=== PATIENT | female | born 1995 | race Caucasian/White ===

== ENCOUNTER 2017-02-02 19:36 | Inpatient (IN) | payer OTHER ==
[2017-02-02 20:43] LABS: Hematocrit 46 % (35-47); Hemoglobin 14.9 g/dl (12.0-16.0); Mean Corpuscular HGB Conc 33 g/dl (31-36); Mean Corpuscular Hemoglobin 28 pg (27-31); Mean Corpuscular Volume 84 fL (80-97); Mean Platelet Volume 10 um3 (7.4-10.4); Red Blood Count 5.42 10^6/ul (4.0-5.4); Red Cell Distribution Width 13 % (10.5-15); White Blood Count 8.4 10^3/ul (3.5-10.8)
[2017-02-02 20:55] LABS: Urine Bilirubin Negative (Negative); Urine Glucose Negative (Negative); Urine Nitrite Negative (Negative)
--- NOTE | 2017-02-02 20:58 | ED ---
Psychiatric Complaint - HPI Summary HPI Summary: 21F presents with increase depression due to school. had panic attack today and went to health center and sent here because admits to suicidal ideation for past week. Has no plan. denies any homicidal ideation. States that exams have caused increased anxiety and has made depression worst. denies any ETOH or drug use. Uses xanax for anxiety. not on any depression medication.has family history of depression. has been previously hospitalized for psych. - History Of Current Complaint Chief Complaint: EDMentalHealth Time Seen by Provider: 02/02/17 20:01 Hx Last Menstrual Period: 12/04/2015 - Allergies/Home Medications Allergies/Adverse Reactions: Allergies Allergy/AdvReac Type Severity Reaction Status Date / Time No Known Allergies Allergy Verified 02/02/17 19:42 Home Medications: Home Medications ALPRAZolam TAB* [Xanax TAB*] 0.5 mg PO TID PRN 02/02/17 [History Confirmed 02/02] Albuterol HFA INHALER* [Ventolin HFA Inhaler*] 1 puff INH Q4H PRN 02/02/17 [ History Confirmed 02/02/17] Levonorgestrel-Ethinyl Estradi [Jolessa 0.15-0.03 mg] 1 tab PO DAILY WITH MEAL 02/02/17 [History Confirmed 02/02/17] PMH/Surg Hx/FS Hx/Imm Hx Cardiovascular History: Denies: Hx Hypertension Respiratory History: Denies: Hx Asthma Psychiatric History: Reports: Hx Anxiety, Hx Depression Infectious Disease History: No Infectious Disease History: Denies: History Other Infectious Disease, Traveled Outside the [place] in Last 30 Days - Family History Known Family History: Positive: None - reviewed & noncontributory, Other - depression - Social History Alcohol Use: Occasionally Hx Substance Use: Yes Substance Use Type: Reports: Marijuana Substance Use Comment - Amount & Last Used: 2-3x's a year Hx Tobacco Use: No Smoking Status (MU): Never Smoked Tobacco Have You Smoked in the Last Year: No Review of Systems Negative: Fever Negative: Chest Pain Negative: Shortness Of Breath Positive: Anxious, Depressed All Other Systems Reviewed And Are Negative: Yes Physical Exam Triage Information Reviewed: Yes Vital Signs On Initial Exam: Initial Vitals Temp Pulse Resp BP Pulse Ox 99.7 F 86 20 117/68 100 02/02/17 19:36 02/02/17 19:36 02/02/17 19:36 02/02/17 19:36 02/02/17 19:36 Vital Signs Reviewed: Yes Appearance: Positive: Well-Appearing Skin: Positive: Warm, Dry Head/Face: Positive: Normal Head/Face Inspection Eyes: Positive: Normal, Conjunctiva Clear Respiratory/Lung Sounds: Positive: Clear to Auscultation, Breath Sounds Present Cardiovascular: Positive: Normal, RRR Abdomen Description: Positive: Nontender, Soft Bowel Sounds: Positive: Present Diagnostics - Vital Signs Vital Signs Temp Pulse Resp BP Pulse Ox 02/02/17 20:40 99.4 F 86 20 117/68 100 02/02/17 19:36 99.7 F 86 20 117/68 100 - Laboratory Lab Results: Lab Results 02/02/17 02/02/17 Range/Units 20:20 20:20 WBC 8.4 (3.5-10.8) 10^3/ul RBC 5.42 H (4.0-5.4) 10^6/ul Hgb 14.9 (12.0-16.0) g/dl Hct 46 (35-47) % MCV 84 (80-97) fL MCH 28 (27-31) pg MCHC 33 (31-36) g/dl RDW 13 (10.5-15) % Plt Count 274 (150-450) 10^3/ul MPV 10 (7.4-10.4) um3 Neut % (Auto) 67.9 (38-83) % Lymph % (Auto) 25.4 (25-47) % [place] % (Auto) 5.7 (1-9) % Eos % (Auto) 0.3 (0-6) % Baso % (Auto) 0.7 (0-2) % Absolute Neuts (auto) 5.7 (1.5-7.7) 10^3/ul Absolute Lymphs (auto) 2.1 (1.0-4.8) 10^3/ul Absolute Monos (auto) 0.5 (0-0.8) 10^3/ul Absolute Eos (auto) 0 (0-0.6) 10^3/ul Absolute Basos (auto) 0.1 (0-0.2) 10^3/ul Absolute Nucleated RBC 0.01 10^3/ul Nucleated RBC % 0.1 Urine Color Yellow Urine Appearance Clear Urine pH 5.0 (5-9) Ur Specific Reading 1.025 (1.010-1.030) Urine Protein Negative (Negative) Urine Ketones Trace H (Negative) Urine Blood Negative (Negative) Urine Nitrate Negative (Negative) Urine Bilirubin Negative (Negative) Urine Urobilinogen Negative (Negative) Ur Leukocyte Esterase Negative (Negative) Urine Glucose Negative (Negative) Urine Ascorbic Acid * H (Negative) Result Diagrams: 02/02/17 20:20 02/02/17 20:20 Lab Statement: Any lab studies that have been ordered have been reviewed, and results considered in the medical decision making process. Course/Dx - Course Course Of Treatment: 21F presents with suicidal ideations for 2 weeks. states due to anxiety from exams. does not have plan at moment. has been hosptialized before for mental health. is medically clear for MHE exam. signed out to dr sears pending mental health evaluation - Differential Dx/Clinical Impression Differential Diagnosis/HQI/PQRI: Positive: Anxiety, Depression, Suicidal Ideation Provider Diagnosis: Depression Discharge - Discharge Plan Condition: Stable Disposition: OTHER Discharge Disposition Comment: signed out to dr sears Referrals: No Primary Care Phys,NOPCP [Primary Care Provider] -
[2017-02-02 20:59] LABS: ALT 12 U/L (7-52); AST 13 U/L (13-39); Albumin 4.6 g/dL (3.2-5.2); Alkaline Phosphatase 43 U/L (34-104); Anion Gap 9 mmol/L (2-11); Blood Urea Nitrogen 11 mg/dL (6-24); CO2 Carbon Dioxide 25 mmol/L (22-32); Calcium 9.7 mg/dL (8.6-10.3); Chloride 101 mmol/L (101-111); EGFR African American 98.2 (>60); EGFR Non-African American 76.3 (>60); Globulin 3.1 g/dL (2-4); Glucose 93 mg/dL (70-100); Potassium 3.9 mmol/L (3.5-5.0); Sodium 135 mmol/L (133-145); Total Protein 7.7 g/dL (6.4-8.9)
[2017-02-02 21:01] LABS: Benzodiazepine Urine Screen None Detected (None Detect)
[2017-02-02 21:12] LABS: Acetaminophen < 15 mcg/mL; Alcohol < 10 mg/dL (<10); Salicylate < 2.50 mg/dL (<30)
[2017-02-02 21:23] LABS: TSH (Thyroid Stimulating Horm) 0.87 mcIU/mL (0.34-5.60)
[2017-02-03] MEDS ORDERED: Nicotine Inhaler* 10 MG AMP INH PRN (11:06)
[2017-02-03] MEDS ORDERED: Albuterol HFA INHALER* 8 gm MDI INH PRN (11:09)
[2017-02-03] MEDS ORDERED: Ibuprofen TAB* 600 MG PO ONE (11:40)
[2017-02-03] MEDS ORDERED: Mouth Piece, Nicotine* 1 EACH CARTRIDGE INH ONE (12:00)
--- NOTE | 2017-02-03 14:02 | ED ---
Mejia Hobson Auryana, scribed for Chandler Almeida MD on 02/03/17 at 1116 . Progress - Progress Note Progress Note: Patient will be a involuntary admission- papers signed 11:16. Condition : stable - Consult/PCP Time Called: 03:07 Course/Dx - Diagnoses Provider Diagnoses: Depression, Suicidal ideation The documentation as recorded by the Mejia rayo Auryana accurately reflects the service I personally performed and the decisions made by , Chandler Almeida MD.
[2017-02-03] MEDS: ETHINYL ESTRADIOL PO SCH (16:25)
[2017-02-03] MEDS: LEVONORGESTREL PO SCH (16:25)
[2017-02-04] MEDS: ETHINYL ESTRADIOL PO SCH (09:53)
[2017-02-04] MEDS: LEVONORGESTREL PO SCH (09:53)
[2017-02-04] MEDS: ALPRAZolam TAB* 0.5 MG PO PRN (22:22)
--- NOTE | 2017-02-04 22:30 | HP ---
AMENDED REPORT NOW INCLUDES COSIGNER DESIGNATION - ESIGNED BEFORE ADJUSTMENT INITIAL PSYCHIATRIC ASSESSMENT: DATE OF ADMISSION: 02/02/17 ATTENDING PROVIDER/SUPERVISING PSYCHIATRIST: Darren Mccoy MD * (dictated by Delvin Santamaria NP) IDENTIFYING INFORMATION: The patient is a 21-year-old white female admitted to this facility on 02/02/17. Admitting status is 9.39. The patient was seen and examined, the chart was reviewed, and the case was discussed with clinical staff available at the time of the visit. CHIEF COMPLAINT/REASON FOR ADMISSION: The patient states "I made a statement to the woman at the [facility] and she freaked out." HISTORY OF PRESENT ILLNESS: The patient informs me today that she has always had problems with giving presentations. She states that although the presentation that she had to give on this particular occasion only required 2 minutes, she was quite upset over the fact that a girl she knew "subtweeted" about her (note a subtweet is apparently a passive aggressive behavior engaged in by some individuals on social media per the patient's description). She stated that this happened prior to her presentation and as a result, she just was not feeling herself and that she had had the panic attack when she was close to give the presentation. Her friend had actually walked her to the [facility] and she acknowledges that whenever she has a panic attack, in the aftermaths of the panic attack, she has suicidal thoughts, which she shared with the woman at the [facility]. She stated that the woman left the room and closed the door and then stated that she was able to hear her "freaking out " in the hallway. At this time, she is denying any suicidal ideation. When I questioned her regarding her mood, she acknowledges that she probably has been feeling depressed. She rates her depression currently at a 4/10 on the 1-10 scale in which 10 represents the most depressed she has ever felt; however, she reports that several times throughout the course of this past semester, her depressive symptoms have perhaps escalated to a 7 or 8. Similarly, she is reporting anxiety over the course of the past week. She does report that her anxiety has reached the levels of 5 to 6 on the 1 to 10 scale in which 10 represents the most anxious she has ever felt. She does acknowledge ongoing problems with panic attacks, which occur approximately once a month the most recent of course being on the day of her presentation. PAST MEDICAL HISTORY: Includes asthma, GERD, and gastritis by history. PAST PSYCHIATRIC HISTORY: The patient has a history of seeing therapist within the confines of school settings. She had apparently overdosed on pills in the year 2007. She has seen a psychiatric nurse practitioner for a short time thereafter, then began seeing a therapist. She does state that she took a year off after high school to (get myself together). She then saw a therapist at [facility] and now she sees one at [facility]. At one point, the psychiatric nurse practitioner had apparently prescribed her on Xanax and Zoloft. She had taken the Zoloft for approximately 2 months, but reported that it made her sleepy and reports that she still uses the Xanax from time to time. She says that she received approximately 90 pills in her first prescription of Xanax and it has been several years and she states that she still has approximately 50 pills left. PSYCHOSOCIAL HISTORY: The patient is currently single. She has no children. She has several siblings. Her older sister actually graduated from dental school yesterday. She is somewhat upset that she was not able to see her sister graduate. She is currently attending [employer] for [employer] studies. She denied any history of emotional or physical abuse. She does acknowledge, however, that her father was "tough" when she was growing up. She currently denies any bullying. FAMILY HISTORY OF PSYCHIATRIC ILLNESS: She reports that her father was diagnosed with borderline personality disorder and depression. She also reports that her sister was diagnosed with depression and one with anxiety. She also reports that her brother did attempt suicide; however, there is no history of completed suicides in the family. SUBSTANCE USE HISTORY: Alcohol, she reports she drinks once approximately every 2 weeks. She will drink "until buzzed." She also acknowledges marijuana use approximately 1 to 2 times per week. She states that this will calm her down, but if she uses it too close to bedtime, it keeps her awake. She is currently denying any other illicit drug use or abuse. REVIEW OF SYSTEMS: General: She denies fevers, chills, or night sweats. HEENT : She denies problems with headache, dizziness, syncope, changes in hearing, or vision. Denies any difficulty chewing or swallowing. Cardiovascular: She denies chest pain or palpitations. Pulmonary: She acknowledges occasional shortness of breath when she is having an asthma attack. Gastrointestinal: She does have some problems with GERD symptoms secondary to her history of gastritis, but reports she has not been plagued by same. Genitourinary/ Reproductive: She denies dysuria or associated difficulty. Neurologic: She denies any numbness or tingling in the extremities. Musculoskeletal: She denies any muscle or joint pain. Endocrine/Hemopoietic/Lymphatic: She denies any issues. PHYSICAL EXAMINATION GENERAL: The patient is a well developed, well nourished, alert and cooperative , appears to be in no acute distress at the time of the exam. HEENT: Head is normocephalic, atraumatic. NECK: Appears normal on inspection. RESPIRATORY: No respiratory distress. CARDIAC: Rate is 72. Blood pressure 118/68. ABDOMEN: Symmetrical without distention or guarding. MUSCULOSKELETAL: The patient demonstrates full range of motion. EXTREMITIES: Nonedematous. NEUROLOGICAL: The patient is alert and oriented x3 with no focal neuro deficits. MENTAL STATUS EXAMINATION: The patient is of healthy build and appears her stated age with good grooming and hygiene noted. On gross examination, she appears to have no physical deformities. Attitude towards the examiner was pleasant and cooperative. Gait, motor, and coordination: She does ambulate with a steady gait. Her posture was erect. She did not appear to be demonstrating any noteworthy mannerism, gestures, or tics. Activity level was within normal limits with no evidence of psychomotor excitation or retardation noted. The patient is alert with no evidence of confusion or lack of proper association for person, place, or time noted. Speech was clear, coherent, goal- directed, and spontaneous. Self reported mood is depressed (see above for further details.) She also acknowledges anxiety as outlined below. Her affect is consistent to self-reported mood. She denies visual or auditory hallucinations. No overt delusional or paranoid thought processes was readily apparent. Judgment and insight appeared preserved. The patient appeared to be a reliable historian as she was able to recall both recent and past events in her personal autobiographical history and similarly her description of the events that resulted in her hospitalization matched the description obtained from the emergency department. Concentration and attention appeared grossly intact. She is currently denying suicidal or homicidal ideations and is future oriented. LABORATORY DATA: Review of laboratory data undertaken at this time, the following abnormals are noted. Hematology, there is an elevated red blood cell count at 5.42. Chemistry studies were within normal parameters. Urine demonstrated a trace ketone and elevated urine ascorbic acid. Toxicology screen was presumptively positive for cannabinoids. 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 She reports the lifelong habit of this; however, when she shared this with the individual from the [facility], she was brought to the hospital and it was decided to admit her for diagnostic clarification and safety. ADMITTING DIAGNOSIS: Rule out major depressive disorder, rule out social anxiety disorder, rule out panic disorder. PLAN OF TREATMENT: Admit to behavioral services unit. Diet is regular. Vital signs per unit protocol. Activity as tolerated. The patient will participate in treatment planning activities, individual, group, and milieu therapy as well as medication management sessions and discharging planing until she is stable or refer to a higher level of care. Treatment goal is stabilization. Prognosis is fair. Estimated length of stay 3 to 5 days. DISCHARGE CRITERIA: The patient will be discharged when she is no longer risk to herself or others and has met the criteria set forth by the treatment team for discharge. The case was reviewed and discussed with Dr. Darren Mccoy, who concurred with assessment, clinical impression, and initial plan of care. DELVIN SANTAMARIA NP [id number]/[facility] #: [id number] NATANAEL
[2017-02-05] MEDS: ETHINYL ESTRADIOL PO SCH ×2 (09:18→15:09)
[2017-02-05] MEDS: LEVONORGESTREL PO SCH ×2 (09:18→15:09)
[2017-02-05] MEDS: ALPRAZolam TAB* 0.5 MG PO PRN (22:08)
[2017-02-06] MEDS: ETHINYL ESTRADIOL PO SCH (07:41)
[2017-02-06] MEDS: LEVONORGESTREL PO SCH (07:41)
[2017-02-06 07:58] VITALS: BP 123/61
--- NOTE | 2017-02-06 23:25 | DS ---
DISCHARGE SUMMARY: DATE OF ADMISSION: 02/03/17 DATE OF DISCHARGE: 02/06/17 DISCHARGE DIAGNOSES: Are as follows: [place] I: Unspecified anxiety disorder. [place] II: Deferred. [place] III: Asthma, gastroesophageal reflux disease and gastritis by history. [place] IV: Moderate primary support and academic stressors. [place] V: At the time of admission was 45 and at the time of discharge is 60. CONDITION AT THE TIME OF DISCHARGE: Stable. The patient is calm, cooperative. She is denying suicidal ideations. She has been visited on the unit by her mother and the family is in support of discharge at this time. Furthermore, the patient is agreeable with outpatient psychiatric followup with her psychiatrist in her hometown of [place], [place]. The patient has been safe on all checks and she has denied suicidal thoughts throughout this hospitalization. MENTAL STATUS EXAM: At the time of discharge, the patient is a young white female wearing glasses, a light blue shirt with yoga pants. She is calm, cooperative, expressive, has good posture and good eye contact. Speech has a normal rate, tone, and volume. Mood is euthymic with a full affect. Thought process is linear and goal directed. Thought content is significant for her desire to leave the hospital and return to her home in [place], [place] so that she can prepare for final exams later this week. She denies suicidal or homicidal ideation. She denies auditory or visual hallucinations. Insight and judgment are fair given her willingness to follow up with outpatient treatment in the community. Cognitively, she is awake and alert with what would appear to be an average intellect. DISCHARGE INSTRUCTIONS: To the patient are as follows: A. Medications: She is taking Celexa 20 mg p.o. q. daily. She takes alprazolam 0.5 mg p.o. q.h.s. as needed for insomnia or anxiety. She takes 1 daily control pill and she takes albuterol inhaler 1 puff every 4 hours as needed for wheezing. B. Diet: Regular. C. Activities: As tolerated. The patient is a nonsmoker. There are no diagnostic studies pending at the time of discharge. D. Followup care: She is to follow up with her outpatient psychiatrist, Dr. Oralia Adorno in [place], [place], within 1 week of discharge. HOSPITAL COURSE: As follows: Part A: Reason for admission: The patient is a 21-year-old single white female , with a history of anxiety problems who was brought to the facility on a 9.39 status from [facility] due to a suicidal statement. The patient reports that she has always felt particular anxiety when giving oral reports or anything related to pubic speaking. She was already upset when she started the presentation, because a female peer at [facility] had put out a negative tweet about her through social media. She states that she found out about this right before her scheduled presentation and as a result she was not feeling like herself and she indicates that she had a panic attack. One of her friends walked her to the [facility] and she did share suicidal ideations with the woman evaluating her. She feels that the woman overreacted by calling [facility] security and having her sent to the hospital. At the time of evaluation , she was denying suicidal ideations. She did endorse some symptoms of mild depression upon admission as well as anxiety in the form of panic attacks. She indicates that she had been seeing a therapist at the [facility], but that that relationship was ending due to the fact that the patient is graduating from college. At any rate, we made contact with her mother who felt that she would benefit from a brief hospitalization. Part B: Psychiatric treatment rendered: The patient was admitted to the adult behavioral health unit where she was placed on q.30-minute checks for her own safety. She was started on a trial of citalopram 20 mg p.o. q. daily and she was maintained on her p.r.n. dose of Xanax for anxiety and insomnia in the evening. We also treated her with a control pill and her albuterol inhaler as a p.r.n. for wheezing. The patient steadfastly denied suicidal ideations throughout her hospitalization. Her mother actually arrived from [place] on Monday, the day prior to discharge and indicated that she felt that the patient was safe to leave, but the family was notified that the hospital could not facilitate a Monday discharge. For this reason, she was kept an additional day and she was safe on all checks. The patient states that the suicidal ideations prior to admission had been completely passive in nature and they had not recurred during her brief hospitalization. At this time what she wants is to return to [place] to study for her final exams, which occur later this week. After the completion of her exams, she will graduate and she is looking to resume treatment with a psychiatrist named Dr. Adorno in her hometown of [place], [place]. The family is agreeable with this plan. We have seen no behavior on her part that would indicate that she is not safe and we feel comfortable discharging her to a less restrictive environment. [id number]/[facility] #: [id number] MTDJorge A
== END 2017-02-06 12:30 | disposition home or self-care (01) | DRG 756 ==
LOC: ED 19:36 → BSU 02-03 11:06 → ED 02-03 13:29
PROVIDERS: ADMIT Psychiatry & Neurology Psychiatry; ATTEND Psychiatry & Neurology Psychiatry
DX: F41.9 Anxiety disorder, unspecified (principal); R45.851 Suicidal ideations; J45.909 Unspecified asthma, uncomplicated; K21.9 Gastro-esophageal reflux disease without esophagitis; Z81.8 Family history of other mental and behavioral disorders
CPT/HCPCS: 36415; 80053; 80307; 80320; 80329; 81003; 84443; 85025; 99222; 99238; A9270-GY; G0480